=== PATIENT | female | born 1990 | race Two or more races ===

== ENCOUNTER 2023-02-11 18:56 | Observation (INO) | payer MEDICAID ==
[~2023-02-11] VITALS: Ht 160 cm; Wt 93.0 kg
[2023-02-11] MEDS ORDERED: PREN-96 PO (19:34)
== END 2023-02-11 23:08 | disposition home or self-care (01) ==
LOC: LDRP 18:56
PROVIDERS: ADMIT Obstetrics & Gynecology; ATTEND Obstetrics & Gynecology
DX: O60.03 Preterm labor without delivery, third trimester (principal); Z3A.33 33 weeks gestation of pregnancy
CPT/HCPCS: 59025; 76818; 81002; 94760; G0378

== ENCOUNTER 2023-02-25 09:04 | Observation (INO) | payer MEDICAID ==
[~2023-02-25 09:04] MED LIST: PREN-96 PO
[2023-02-25] MEDS ORDERED: TERBUTALINE SULFATE 1 MG/ML 1ML VIAL SC ONE (11:15)
== END 2023-02-25 12:12 | disposition home or self-care (01) ==
LOC: UNDOADMOB 09:04 → LDRP 09:04 → UNDODISOB 12:12
PROVIDERS: ADMIT Obstetrics & Gynecology; ATTEND Obstetrics & Gynecology
DX: O60.03 Preterm labor without delivery, third trimester (principal); Z3A.35 35 weeks gestation of pregnancy
CPT/HCPCS: 59025; 76818; 81002; 94760; 96372; G0378; J3105

== ENCOUNTER → 2023-03-03 | Outpatient (CLI) | payer MEDICAID ==
[2023-03-03 12:21] LABS: Basophils # (auto) 0 10 ^3/uL (0-0.2); Basophils % (auto) 0.4 % (0.0-2.0); Eosinophils # (auto) 0.1 10 ^3/uL (0-0.8); Eosinophils % (auto) 1.9 % (0.0-7.0); Hematocrit 38.1 % (36.0-46.0); Hemoglobin 13.1 g/dL (12.2-16.2); Lymphocytes # (auto) 1.7 10 ^3/uL (0.4-5.4); Lymphocytes % (auto) 22.5 % (10.0-50.0); Mean Corpuscular Hemoglobin 32.2 pg (28.0-32.0); Mean Corpuscular Hgb Conc. 34.5 g/dL (32.0-36.0); Mean Corpuscular Volume 93.3 fL (80.0-100.0); Monocytes # (auto) 0.7 10 ^3/uL (0-1.3); Monocytes % (auto) 9.1 % (0.0-12.0); Neutrophils # (auto) 5.1 10 ^3/uL (1.6-8.6); Neutrophils % (auto) 66.1 % (37.0-80.0); Nucleated Red Blood Cells % 0.1 %; Red Blood Cells 4.08 10^6/uL (4.0-5.20); Red Cell Distribution Width 14.3 % (11.8-14.3); White Blood Cell 7.7 10^3/uL (4.4-10.8)
[2023-03-04 08:06] LABS: RPR Non Reactive (Non Reactive)
== END | disposition home or self-care (01) ==
LOC: LAB 11:48
PROVIDERS: ATTEND Obstetrics & Gynecology
DX: Z11.3 Encounter for screening for infections with a predominantly sexual mode of transmission (principal)
CPT/HCPCS: 36415; 83036; 84112; 85025; 86592

== ENCOUNTER 2023-03-04 09:21 | Observation (INO) | payer MEDICAID ==
[~2023-03-04] VITALS: Ht 162.6 cm; Wt 92.5 kg
== END 2023-03-04 10:56 | disposition home or self-care (01) ==
LOC: UNDOADMOB 09:21 → LDRP 09:21
PROVIDERS: ADMIT Obstetrics & Gynecology; ATTEND Obstetrics & Gynecology
DX: O60.03 Preterm labor without delivery, third trimester (principal); Z3A.36 36 weeks gestation of pregnancy
CPT/HCPCS: 59025; 76818; 81002; 94760; G0378

== ENCOUNTER 2023-03-14 19:16 | Observation (INO) | payer MEDICAID ==
[~2023-03-14] VITALS: Ht 162.6 cm; Wt 92.5 kg
[2023-03-14] MEDS ORDERED: LACTATED RINGER'S 1,000 ML IV ONE (20:00)
[2023-03-14] MEDS ORDERED: LACTATED RINGER'S 1,000 ML IV SCH (20:00)
== END 2023-03-14 23:08 | disposition home or self-care (01) ==
LOC: LDRP 19:16
PROVIDERS: ADMIT Obstetrics & Gynecology; ATTEND Obstetrics & Gynecology
DX: O99.891 Other specified diseases and conditions complicating pregnancy (principal); M54.9 Dorsalgia, unspecified; Z3A.37 37 weeks gestation of pregnancy
CPT/HCPCS: 59025; 76817; 76818; 81002; 94760; G0378

== ENCOUNTER 2023-03-25 23:02 | Observation (INO) | payer MEDICAID ==
[~2023-03-25] VITALS: Ht 162.6 cm; Wt 92.5 kg
== END 2023-03-26 00:25 | disposition home or self-care (01) ==
LOC: LDRP 23:02
PROVIDERS: ADMIT Obstetrics & Gynecology; ATTEND Obstetrics & Gynecology
DX: O62.9 Abnormality of forces of labor, unspecified (principal); Z3A.39 39 weeks gestation of pregnancy; Z91.040 Latex allergy status
CPT/HCPCS: 59025; 81002; 94760; G0378

== ENCOUNTER 2023-04-01 06:49 | Observation (INO) | payer MEDICAID ==
[2023-04-01 10:53] LABS: Fern Testing Negative
== END 2023-04-01 11:36 | disposition home or self-care (01) ==
LOC: LDRP 08:58 → UNDOADMOB 08:58 → LDRP 09:05 → UNDODISOB 11:36
PROVIDERS: ADMIT Obstetrics & Gynecology; ATTEND Obstetrics & Gynecology
DX: O62.9 Abnormality of forces of labor, unspecified (principal); O42.92 Full-term premature rupture of membranes, unspecified as to length of time between rupture and onset of labor; Z3A.40 40 weeks gestation of pregnancy
CPT/HCPCS: 59025; 76818; 81002; 84112; G0378; Q0114

== ENCOUNTER 2023-04-02 07:05 | Inpatient (IN) | payer MEDICAID ==
[~2023-04-02] VITALS: Ht 162.6 cm; Wt 92.5 kg
[2023-04-02] MEDS ORDERED: DERMOPLAST 60ML BOTTLE TOP PRN (08:00)
[2023-04-02] MEDS ORDERED: LACT. RINGERS/OXYTOCIN 20UNITS 500 ML IV ONE ×3 (08:00→08:45)
[2023-04-02] MEDS ORDERED: BUTORPHANOL TARTRATE 2 MG/1 ML VIAL IV PRN ×2 (08:00)
[2023-04-02] MEDS ORDERED: LIDOCAINE 2%HCL (LOCAL ANESTH.) INJ 20ML MDV IJ PRN (08:00)
[2023-04-02] MEDS ORDERED: LACTATED RINGER'S 1,000 ML IV SCH (08:00)
[2023-04-02] MEDS ORDERED: PROMETHAZINE HCL 25 MG/ML 1ML IV PRN (08:00)
[2023-04-02] MEDS ORDERED: PHISODERM TOP SOLN 240ML BTL TOP PRN (08:00)
[2023-04-02] MEDS ORDERED: WITCH HAZEL-GLYCERIN PAD TOP PRN (08:00)
[2023-04-02 08:20] LABS: Fern Testing Positive
[2023-04-02 08:27] LABS: Amphetamine Screen, Urine Neg (NEGATIVE); Barbiturate Scree,Urine Neg (NEGATIVE); Benzodiazephine Screen, Urine Neg (NEGATIVE); Cannabinoid Screen, Urine Neg (NEGATIVE); Cocaine Screen, Urine Neg (NEGATIVE); Opiate Scree,Urine Neg (NEGATIVE); Phencyclidine Screen, Urine Neg (NEGATIVE)
[2023-04-02 08:41] LABS: Urine Bacteria NONE SEEN /hpf (None Seen); Urine Blood Negative /uL (Negative); Urine Clarity Clear (Clear); Urine Color Yellow (Yellow); Urine Protein, UAD Negative (Negative); Urine Specific Gravity 1.014 (1.001-1.035); Urine Urobilinogen Normal (Negative); Urine WBC 1 /hpf (0 - 5); Urine pH 6.5 (5.0-8.0)
[2023-04-02] MEDS ORDERED: LIDOCAINE HCL 2 %PF INJ 10ML AMP IJ ONE (08:45)
[2023-04-02] MEDS ORDERED: NALOXONE HCL 0.4 MG/ML VIAL IV ONE (08:45)
[2023-04-02] MEDS ORDERED: fentaNYL CITRATE 100 MCG/2 ML VL IV ONE (08:45)
[2023-04-02] MEDS ORDERED: ROPIVACAINE HCL 200 ML EPI SCH (08:45)
[2023-04-02] MEDS ORDERED: ePHEDrine SULFATE 50 MG/ML AMP IV ONE (08:45)
[2023-04-02 08:49] LABS: Basophils # (auto) 0 10 ^3/uL (0-0.2); Basophils % (auto) 0.3 % (0.0-2.0); Eosinophils # (auto) 0.1 10 ^3/uL (0-0.8); Eosinophils % (auto) 0.9 % (0.0-7.0); Hematocrit 40.8 % (36.0-46.0); Hemoglobin 14.2 g/dL (12.2-16.2); Lymphocytes # (auto) 1.8 10 ^3/uL (0.4-5.4); Lymphocytes % (auto) 25.8 % (10.0-50.0); Mean Corpuscular Hemoglobin 31.7 pg (28.0-32.0); Mean Corpuscular Hgb Conc. 34.8 g/dL (32.0-36.0); Mean Corpuscular Volume 91.1 fL (80.0-100.0); Monocytes # (auto) 0.6 10 ^3/uL (0-1.3); Monocytes % (auto) 8.4 % (0.0-12.0); Neutrophils # (auto) 4.4 10 ^3/uL (1.6-8.6); Neutrophils % (auto) 64.6 % (37.0-80.0); Red Blood Cells 4.48 10^6/uL (4.0-5.20); Red Cell Distribution Width 14.2 % (11.8-14.3); White Blood Cell 6.9 10^3/uL (4.4-10.8)
[2023-04-02 09:06] LABS: Partial Thromboplastin Time 26.6 SEC (24.5-34.5); Prothrombin Time 10.5 sec (9.3-11.8)
[2023-04-02 10:00] LABS: Alanine Aminotransferase 17 U/L (7-40); Albumin 3.8 g/dL (3.2-4.8); Alkaline Phosphatase 227 U/L (46-116); Anion Gap 11.6 (5-15); Aspartate Aminotransferase 23 U/L (13-40); BUN/Creatinine Ratio 7.9 (10.0-20.0); Bilirubin, Total 0.6 mg/dL (0.2-1.0); Blood Urea Nitrogen 5 mg/dL (9-23); Calcium 8.9 mg/dL (8.5-10.1); Carbon Dioxide 18.4 mmol/L (20-30); Chloride 107 mmol/L (98-107); Glucose 80 mg/dL (74-106); Potassium 3.9 mmol/L (3.5-5.1); Sodium 137 mmol/L (136-145); Total Protein 6.7 g/dL (5.7-8.2)
[2023-04-02] MEDS ORDERED: LACT. RINGERS/OXYTOCIN 20UNITS 1,000 ML IV SCH (11:15)
[2023-04-02] MEDS: ceFAZolin 1GM/50ML 50 ML IV SCH ×2 (11:34→21:32)
[2023-04-02] MEDS ORDERED: ceFAZolin 1GM/50ML 50 ML IV SCH (14:00)
[2023-04-02] MEDS ORDERED: ONDANSETRON HCL 4 MG/2 ML VIAL IM ONE (15:45)
[2023-04-02 20:15] VITALS: O2SAT 97
[2023-04-02] MEDS ORDERED: DOCUSATE SOD 100 MG CAP PO SCH (22:00)
[2023-04-02] MEDS: IBUPROFEN 600 MG TAB PO PRN (22:35)
[2023-04-02] MEDS: ACETAMINOPHEN 325 MG TAB PO PRN (22:35)
[2023-04-02 23:05] VITALS: BP 113/60; PULSE 73; RESP 18; TEMP 98.5; O2SAT 95
[2023-04-03 02:45] VITALS: BP 106/59; PULSE 70; RESP 18; TEMP 98.2; O2SAT 97
[2023-04-03] MEDS: ceFAZolin 1GM/50ML 50 ML IV SCH ×2 (04:53→12:58)
[2023-04-03] MEDS: IBUPROFEN 600 MG TAB PO PRN ×3 (05:00→18:45)
[2023-04-03 07:00] VITALS: BP 112/68; PULSE 58; RESP 17; TEMP 98; O2SAT 97
[2023-04-03 07:06] LABS: RPR Non Reactive (Non Reactive)
[2023-04-03] MEDS: ACETAMINOPHEN 325 MG TAB PO PRN ×2 (09:10→18:46)
[2023-04-03 11:09] VITALS: BP 108/67; PULSE 81; RESP 17; TEMP 98.1; O2SAT 95
[2023-04-03 15:00] VITALS: BP 97/57; PULSE 73; RESP 16; TEMP 98.7; O2SAT 97
[2023-04-03 19:17] VITALS: BP 96/63; PULSE 74; RESP 18; TEMP 98.7
[2023-04-07 21:06] LABS: Treponema pallidum Ab (FTA-Ab) Non Reactive (Non Reactive)
== END 2023-04-03 21:07 | disposition home or self-care (01) | DRG 560 ==
LOC: LDRP 07:05 → OBSVTOIN 07:58 → LDRP 04-03 10:54
PROVIDERS: ADMIT Obstetrics & Gynecology; ATTEND Obstetrics & Gynecology
PROC: 10D07Z6 Extraction of Products of Conception, Vacuum, Via Natural or Artificial Opening (ICD-10-PCS; principal; 2023-04-02)
PROC: 0KQM0ZZ Repair Perineum Muscle, Open Approach (ICD-10-PCS; 2023-04-02)
PROC: 3E0R3BZ Introduction of Anesthetic Agent into Spinal Canal, Percutaneous Approach (ICD-10-PCS; 2023-04-02)
PROC: 00HU33Z Insertion of Infusion Device into Spinal Canal, Percutaneous Approach (ICD-10-PCS; 2023-04-02)
PROC: 10H07YZ Insertion of Other Device into Products of Conception, Via Natural or Artificial Opening (ICD-10-PCS; 2023-04-02)
DX: O48.0 Post-term pregnancy (principal); Z37.0 Single live birth; O69.81X0 Labor and delivery complicated by cord around neck, without compression, not applicable or unspecified; Z3A.40 40 weeks gestation of pregnancy; O70.0 First degree perineal laceration during delivery
CPT/HCPCS: 36415; 59025; 59409; 62282; 80053; 80307; 81001; 84112; 85025; 85610; 85730; 86592; 86850; 86900; 86901; 94760; 94762; 96360; 96361; 96365; 96366; 96374; G0378; J0690; J2405; J2590